=== PATIENT | female | born 1955 | race Caucasian/White ===

== ENCOUNTER 2022-05-06 07:36 | Emergency (ER) | payer OTHER ==
[~2022-05-06] VITALS: Ht 165.1 cm; Wt 81.7 kg
[2022-05-06 09:46] LABS: BASOPHILS ABSOLUTE AUTO 0.02 K/mm3 (0.00-0.23); BASOPHILS PERCENT AUTO 0 % (0-2); EOSINOPHILS ABSOLUTE AUTO 0.27 K/mm3 (0.00-0.68); EOSINOPHILS PERCENT AUTO 4 % (0-6); Hematocrit 47.8 % (33.0-51.0); Hemoglobin 15.2 g/dL (11.5-16.0); IMMATURE GRAN ABSOLUTE AUTO 0.01 K/mm3 (0.00-0.10); IMMATURE GRAN PERCENT AUTO 0 % (0-1); LYMPHOCYTES ABSOLUTE AUTO 1.57 K/mm3 (0.84-5.20); LYMPHOCYTES PERCENT AUTO 24 % (21-46); MONOCYTES ABSOLUTE AUTO 0.38 K/mm3 (0.16-1.47); MONOCYTES PERCENT AUTO 6 % (4-13); Mean Corpuscular HGB 29.6 pg (26.0-34.0); Mean Corpuscular HGB Conc 31.8 g/dL (31.5-36.5); Mean Corpuscular Volume 93 fL (80-100); Mean Platelet Volume 9.9 fL (9.1-12.4); NEUTROPHILS PERCENT AUTO 65 % (41-73); Platelet Count 214 K/mm3 (150-400); RDW Coefficient Variation 14.6 % (11.7-14.2); RDW Standard Deviation 50.6 fL (35.1-46.3); Red Blood Cell Count 5.14 M/mm3 (3.80-5.20); White Blood Cell Count 6.45 K/mm3 (4.00-11.30)
[2022-05-06 10:05] LABS: Albumin, Blood 3.4 g/dL (3.4-5.0); Albumin/Globulin Ratio 1.1 (0.8-1.8); Bilirubin, Total 0.4 mg/dL (0.1-1.0); Bun/Creatinine Ratio 13.8 (12.0-20.0); Calcium, Blood 9.3 mg/dL (8.5-10.1); Creatinine, Blood 0.73 mg/dL (0.40-1.00); Potassium, Blood 3.4 mmol/L (3.5-5.5); Total Protein, Blood 6.4 g/dL (6.4-8.2)
== END 2022-05-06 11:56 | disposition home or self-care (01) ==
LOC: ER 07:36
PROVIDERS: Student in an Organized Health Care Education/Training Program
DX: M79.604 Pain in right leg (principal); M79.605 Pain in left leg; M79.602 Pain in left arm
CPT/HCPCS: 36415; 80053; 85025; 99283

== ENCOUNTER 2022-05-17 14:58 | Emergency (ER) | payer OTHER ==
[~2022-05-17] VITALS: Ht 162.6 cm; Wt 90.7 kg
[2022-05-17] MEDS ORDERED: Benadryl 50 mg50 MG PO (16:50)
== END 2022-05-17 17:28 | disposition home or self-care (01) ==
LOC: ER 14:58
DX: T63.441A Toxic effect of venom of bees, accidental (unintentional), initial encounter (principal); M79.89 Other specified soft tissue disorders; F17.200 Nicotine dependence, unspecified, uncomplicated
CPT/HCPCS: A9270

== ENCOUNTER 2022-06-29 06:04 | Emergency (ER) | payer OTHER ==
[~2022-06-29] VITALS: Ht 152.4 cm; Wt 90.7 kg
[~2022-06-29 06:04] MED LIST: Benadryl 50 mg50 MG PO
== END 2022-06-29 13:53 | disposition home or self-care (01) ==
LOC: ER 06:04
DX: F10.90 Alcohol use, unspecified, uncomplicated (principal); F19.90 Other psychoactive substance use, unspecified, uncomplicated; F17.200 Nicotine dependence, unspecified, uncomplicated; Z59.00 Homelessness unspecified
CPT/HCPCS: 99281

== ENCOUNTER 2024-05-01 10:34 | Observation (INO) | payer OTHER ==
[~2024-05-01] VITALS: Ht 167.6 cm; Wt 85.0 kg
[2024-05-01 11:24] LABS: BASOPHILS ABSOLUTE AUTO 0.04 K/mm3 (0.00-0.23); BASOPHILS PERCENT AUTO 1 % (0-2); EOSINOPHILS ABSOLUTE AUTO 0.29 K/mm3 (0.00-0.68); EOSINOPHILS PERCENT AUTO 5 % (0-6); Hematocrit 47.7 % (33.0-51.0); Hemoglobin 15.6 g/dL (11.5-16.0); IMMATURE GRAN ABSOLUTE AUTO 0.02 K/mm3 (0.00-0.10); IMMATURE GRAN PERCENT AUTO 0 % (0-1); LYMPHOCYTES ABSOLUTE AUTO 2.29 K/mm3 (0.84-5.20); LYMPHOCYTES PERCENT AUTO 40 % (21-46); MONOCYTES PERCENT AUTO 7 % (4-13); Mean Corpuscular HGB 29.1 pg (26.0-34.0); Mean Corpuscular HGB Conc 32.7 g/dL (31.5-36.5); Mean Corpuscular Volume 89 fL (80-100); Mean Platelet Volume 9.4 fL (9.1-12.4); NEUTROPHILS ABSOLUTE AUTO 2.72 K/mm3 (1.96-9.15); NEUTROPHILS PERCENT AUTO 47 % (41-73); Platelet Count 223 K/mm3 (150-400); RDW Coefficient Variation 14.5 % (11.7-14.2); RDW Standard Deviation 46.6 fL (35.1-46.3); Red Blood Cell Count 5.36 M/mm3 (3.80-5.20); White Blood Cell Count 5.76 K/mm3 (4.00-11.30)
[2024-05-01 11:34] LABS: Albumin, Blood 3.8 g/dL (3.4-5.0); Albumin/Globulin Ratio 1.1 (0.8-1.8); Bilirubin, Total 0.4 mg/dL (0.1-1.0); Bun/Creatinine Ratio 12.5 (12.0-20.0); Calcium, Blood 9.5 mg/dL (8.5-10.1); Creatinine, Blood 0.8 mg/dL (0.40-1.00); Globulin, Blood 3.4 g/dL (2.2-4.0); Potassium, Blood 3.9 mmol/L (3.5-5.5); Total Protein, Blood 7.2 g/dL (6.4-8.2)
[2024-05-01 13:34] LABS: Acetaminophen, Random <2.0 ug/mL (10.0-30.0)
[2024-05-01 16:14] LABS: Source, Urine Clean Catch
[2024-05-01 16:17] LABS: Appearance, Urine Hazy (Clear); Bilirubin, Urine Neg (Neg); Blood, Urine 1+ (Neg); Color, Urine Yellow (P-Yellow); Glucose Qualitative, Urine Neg (Neg); Ketones, Urine Neg (Neg); Leukocyte Esterase, Urine 1+ (Neg); Nitrite, Urine Pos (Neg); Protein, Urine Neg (Neg); Specific Gravity, Urine 1.015 (1.003-1.022); Urobilinogen, Urine NORM (Normal)
[2024-05-01 16:32] LABS: Red Blood Cells, Urine 0-2 /hpf (0-2)
[2024-05-01 16:33] LABS: Bacteria Many /hpf; Squamous Epithelial Cells Few /hpf (Few)
[2024-05-01 16:34] LABS: U Amphetamine Screen Not Detected; U Barbituate Screen Not Detected; U Benzodiazapine Screen Not Detected; U Buprenorphine Screen Not Detected; U Cannabinoids Screen DETECTED; U Cocaine Screen Not Detected; U Methadone Screen Not Detected; U Methamphetamine Screen Not Detected; U Opiates Screen Not Detected; U Oxycodone Screen Not Detected; U Phencyclidine Screen Not Detected
[2024-05-01 17:22] LABS: Influenza A, PCR NEGATIVE (NEGATIVE); Influenza B, PCR NEGATIVE (NEGATIVE); Resp Syncytial Virus, PCR NEGATIVE (NEGATIVE); SARS-Cov-2 (COVID-19) PCR, MMC NEGATIVE (NEGATIVE)
[2024-05-01] MEDS ORDERED: Nicotine 21 MG PATCH TOP ONE (17:25)
[2024-05-01] MEDS ORDERED: Cephalexin Monohydrate 500 MG Cap PO SCH (21:00)
[2024-05-02] MEDS ORDERED: FLU VACC TS2024-25(6MOS UP)/PF 45 MCG/0.5 ML SYRINGE IM ONE (12:25)
[2024-05-02] MEDS ORDERED: Acetaminophen 325 MG TABLET PO PRN (12:25)
[2024-05-02] MEDS ORDERED: Ketorolac Tromethamine 15mg Vial IV PRN (12:40)
[2024-05-02] MEDS ORDERED: Ketorolac Tromethamine 30mg Vial IV PRN (12:40)
[2024-05-02 15:25] VITALS: BP 124/89
--- NOTE | 2024-05-02 15:57 | NUR ---
ADMISSION NOTE PT IS ALERT. ORIENTED TO SELF, CAN'T RECAL DAY OR LOCATION. ADMITTED DUE TO CONFUSION/UTI. PT ARRIVED ON FLOOR AT 1522, WEIGHT IS 85 KG. PT DOESN'T HAVE IV, TELE. PT ON ROOM AIR. PT TRANSFERED FROM ED BY WALKING HERSELF INDEPENDENTLY IN ROOM WITH WALKER. PT ORIENTED TO ROOM, CALL LIGHT IN REACH.
--- NOTE | 2024-05-02 17:00 | NUR ---
SPOKE TO DR. LEON REGARDING CRISIS ADMISSION ORDER. PER DR. LEON DC CRISIS ADMISSION ORDER, NO SI PRECAUTIONS NEEDED AND NO SITTER NEEDED AT THIS TIME.
--- NOTE | 2024-05-02 18:36 | NUR ---
SHIFT SUMMARY PT A&OX2 TO SELF AND PERSON. PT SPEAKS IN SENTENCES BUT HER SENTANCES DON'T ALWAYS MAKE SENSE. PT ADMITTED DUE TO CONFUSION/UTI AND IN NEED OF PLACEMENT. PT REPORTS NO PAIN. PT AMBULATES WITH WALKER. NO ACUTE CHANGES AT THIS TIME. VSS. PT SHOWING NO SIGNS OF SUICIDAL IDEATION THROUGH SHIFT. PT EDUCATED TO USE CALL LIGHT. CALL LIGHT IN REACH.
[2024-05-02 19:33] VITALS: BP 136/85
[2024-05-02] MEDS ORDERED: Lactobacil 2-S.Thermo-Bifido 1 1 Cap PO SCH (21:00)
[2024-05-03 02:36] VITALS: BP 113/63
--- NOTE | 2024-05-03 04:17 | NUR ---
SHIFT SUMMARY PT IS A&O X3-4, COOPERATIVE WITH CARE, ABLE TO MAKE HER NEEDS KNOWN. NO ACUTE EVENTS DURING THIS SHIFT. BED AT THE LOWEST POSITION, CALL LIGHT WITHIN REACH. PT DENIES PAIN AND DISCOMFORT DURING THIS SHIFT.
[2024-05-03 08:08] VITALS: BP 115/76
[2024-05-03] MEDS ORDERED: Enoxaparin 40 MG/0.4 ML SYR SC SCH (09:00)
[2024-05-03 15:52] VITALS: BP 111/71
--- NOTE | 2024-05-03 17:59 | NUR ---
SHIFT SUMMARY PT A&OX2. PT HAS CONFUSION, ADMITTED DUE TO NEEDING PLACEMENT, CONFUSED AND UTI. PT GETTING ORAL ANTIBIOTICS. PT ON RA. PT REPORTS NO PAIN. PT AMBULATES WITH WALKER. VSS. NO ACUTE CHANGES DURING SHIFT. CALL LIGHT IN REACH.
--- NOTE | 2024-05-04 05:08 | NUR ---
SHIFT SUMMARY PT IS A&O X2-3, CONFUSED AT TIMES. COOPERATIVE WITH CARE. NEEDS DIRECTIONS TO GET TO THE RESTROOM OR BEDSIDE COMMODE AT TIMES. INCONTINENT OF URINE AT NIGHT HRS. @HS PO TYLENOL EFFECTIVE FOR C/O BODY ACHES. NO ACUTE EVENTS DURING THIS SHIFT. BED AT THE LOWEST POSITION, CALL LIGHT W/I REACH. PT IS ABLE TO MAKE HER NEEDS KNOWN. PT IS MOSTLY INDEPENDENT W/I THE HOSPITAL ROOM.
[2024-05-04] MEDS ORDERED: Nicotine 21 MG PATCH TOP SCH (09:00)
--- NOTE | 2024-05-04 09:36 | NUR ---
"Spiritual Care | Pt. Referral Pt. is awake and sitting up in her bed when she welcomes my visit. Pt. displayed evidence of indifference as to why the water pump operator wolil visit. Listen with a calming presence and empathy as she verbalizes that her daughter has abandoned her. Through theraputic listening we got to a point where the Pt. would allow this chpalain to pray for her. Prayed for Pt. Pt. verbalaized gratitude for the spiritual care visit."
--- NOTE | 2024-05-04 18:23 | NUR ---
SHIFT SUMMARY: PT A/O X2. PLEASANT AND COOPERATIVE WITH CARE. INDEPENDENT IN ROOM WITH PERSONAL WALKER. MMSE COMPLETED THIS SHIFT WITH A SCORE OF 17/30. CALL LIGHT IN REACH. BED IN LOWEST POSITION.
[2024-05-04 19:08] VITALS: BP 130/83
--- NOTE | 2024-05-05 06:22 | NUR ---
SHIFT SUMMARY PT IS ALERT AND ORIENTED TIMES 4..PT TRANSFERRED FROM U. PT WAS AGITATED ABOUT MOVE AND WAS VOCAL ABOUT IT TO STAFF. PT WAS ABLE TO MAKE NEEDS KNOWN TO STAFF. PT TALKED ABOUT HER MISSING DAUGHTER AND HOW HARD THIS WAS FOR HER. CONVERSATION WAS NOT LINEAR AND BOUNCED FROM DIFFERENT TOPICS FREQUENTLY. PT HEARD TALKING FROM TIME TO TIME TO UNSEEN OTHERS IN AN ARGUMENTATIVE TONE. PT APPEARED TO BE RESTING COMFORTABLY AT 0200. BED IN LOW POSITION, CALL LIGHT WITHIN REACH, RAILS TIMES 2.
[2024-05-05 07:49] VITALS: BP 128/73
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
[2024-05-05 15:08] VITALS: BP 133/94
--- NOTE | 2024-05-05 17:49 | NUR ---
SHIFT SUMMARY PT A&OX2 W/ CONFUSION AT TIMES, AMB IND, VSS, TOLERATING PO, VOIDING, AND DENIED PAIN. NO ACUTE CHANGES. CALL LIGHT WITHIN REACH.
[2024-05-05 21:10] VITALS: BP 113/81
--- NOTE | 2024-05-06 04:33 | NUR ---
SHIFT SUMMARY. NO ACUTE CAHNGES NOTED. PATIENT IS A&0X2 WITH CONFUSION AT TIMES. PATIENT INDEPENDENT IN ROOM TO THE BATHROOM. PATIENT DENIES PAIN. BED IS LOCKED IN THE LOWEST POSITION WITH CALL LIGHT IN REACH. CARE IS ONGOING.
[2024-05-06 05:29] VITALS: BP 120/67
[2024-05-06 07:22] VITALS: BP 121/91
[2024-05-06 15:34] VITALS: BP 120/101
--- NOTE | 2024-05-06 15:51 | NUR ---
DISCHARGE NOTE PT DISCHARGED HOME AT 1550. PT A&OX2, VSS, AMB IND, TOLERATING PO, VOIDING, AND DENIED PAIN. PT PROVIDED W/ VERBAL AND WRITTEN INSTRUCTIONS. BELONGINGS WERE RETURNED AND PT ESCOURTED OUT BY HERMANN HALLMAN TO THE PATIENT ENTRANCE FOR TAXI MODELING AND SIMULATION ANALYST.
== END 2024-05-06 15:52 | disposition home or self-care (01) ==
LOC: ER 10:34 → EOR 10:35 → MEDS 10:35 → ENPENDDIS 05-06 11:42 → MEDS 05-06 15:52
PROVIDERS: Physician Assistant; ADMIT Emergency Medicine
DX: G92.8 Other toxic encephalopathy (principal); F03.90 Unspecified dementia, unspecified severity, without behavioral disturbance, psychotic disturbance, mood disturbance, and anxiety; N39.0 Urinary tract infection, site not specified; F19.10 Other psychoactive substance abuse, uncomplicated; F17.210 Nicotine dependence, cigarettes, uncomplicated
CPT/HCPCS: 0241U; 36415; 80053; 80320; 81001; 82140; 83690; 84443; 85025; 86592; 87077; 87086; 87186; 94760; 96372; 97165; 99285; A9270; G0378; G0480; J1650